=== PATIENT | female | born 1950 | race Caucasian/White ===

== ENCOUNTER → 2018-09-14 08:43 | Outpatient (CLI) | payer MEDICARE, OTHER, SELFPAY ==
[2018-09-14 07:40] VITALS: BMI 39.7
[2018-09-14 09:35] LABS: Absolute Lymphocyte Count 1.79 X10^3/ul (0.83-4.51); Absolute Neutrophil Count 2.9 X10^3/uL (2.0-7.7); Basophil# 0.03 X10^3/uL; Basophil% 0.5 % (0-1); Eosinophil# 0.29 X10^3/uL; Eosinophils% 5.2 % (0-5); Hematocrit 42.3 % (37-47); Hemoglobin 14.2 g/dl (12.0-15.0); International Normalized Ratio 0.9; Lymphocyte # 1.79 X10^3/ul (4.0); Lymphocyte % 32.3 % (19-41); Mean Corp Hgb Conc 33.6 g/gl (32-36); Mean Corpuscular Hgb 31.8 pg (27.0-32.0); Mean Corpuscular Volume 94.6 fL (81-99); Mean Platelet Vol. 9.4 fl (6.2-12.0); Monocyte# 0.52 X10^3/uL; Monocyte% 9.4 % (0-10); Neutrophil % 52.4 % (47-70); Platelet Count 204 K/mm3 (150-450); Prothrombin Time (Protime)PT. 12.6 SECONDS (11.7-14.9); RBC Distribution Width CV 12.6 % (11.6-14.6); RBC Distribution Width SD 42.6 fl (35.1-43.9); Red Blood Count 4.47 M/mm3 (4.2-5.4); White Blood Count 5.5 K/mm3 (4.4-11.0)
[2018-09-14 09:36] LABS: Partial Thromboplast Time 30.6 Seconds (24.1-36.2)
[2018-09-14 09:39] LABS: POSITIVE COUNT NO; POSITIVE DIFFERENTIAL NO; POSITIVE MORPHOLOGY NO
== END ==
PROVIDERS: Family Provider Physician Assistant; PCP Physician Assistant; Referring Provider Internal Medicine Critical Care Medicine; Visit Provider Internal Medicine Critical Care Medicine
DX: Z01.812 Encounter for preprocedural laboratory examination (principal); R91.8 Other nonspecific abnormal finding of lung field; R05 Cough
CPT/HCPCS: 36415; 85025; 85610; 85730

== ENCOUNTER → 2018-09-20 06:45 | Outpatient (CLI) | payer MEDICARE, OTHER, SELFPAY ==
[2018-09-14 07:40] VITALS: BMI 39.7
--- NOTE | 2018-09-20 12:00 | PFTCOMP ---
COMPLETE PULMONARY FUNCTION TEST INTERPRETATION Brief HPI: Patient is a 67 year old female, currently under the care of myself, who presents to [facility] for complete pulmonary function tests secondary to diagnosis of abnormal chest imaging. Respiratory therapist reports good effort and reproducible results. Interpretation: Forced expiration spirometry shows no large airways obstructive ventilatory defect with an FEV1 of 105% predicted. There is no significant bronchodilator response by strict ATS criteria. Spirograms are of good quality and plateau normally. The respiratory flow volume loop shows a normal pattern. Lung volumes by body plethysmography show an elevated total lung capacity at 5.17 L, 122% predicted. All other lung volumes are increased symmetrically. Diffusion capacity by carbon monoxide is at the lower limit of normal at 68% predicted. The airway resistance is normal. No previous pulmonary function tests were available for review. Impression: These pulmonary function tests are grossly within normal limits. DLCO is at the lower limit of normal and may indicate an early pulmonary vascular disorder.
== END ==
PROVIDERS: Family Provider Physician Assistant; PCP Physician Assistant; Referring Provider Internal Medicine Critical Care Medicine; Visit Provider Internal Medicine Critical Care Medicine
DX: R91.8 Other nonspecific abnormal finding of lung field (principal); R05 Cough
CPT/HCPCS: 94060; 94726; 94729

== ENCOUNTER 2018-10-08 10:37 | Day surgery (SDC) | payer MEDICARE, OTHER, SELFPAY ==
[2018-09-14 07:40] VITALS: BMI 39.7
[2018-10-08] VITALS (9 sets, daily range): BP systolic 83–169; BP diastolic 51–125; PULSE 58–80; RESP 14–16; TEMP 36.2–36.9; O2SAT 92–96; BMI 39.6
--- NOTE | 2018-10-08 | ASPS_PTH ---
PATIENT: ARUNA HILL LOC: EN U#:[id number] AGE/SX: 67/F ROOM: RE10/08/[address]: Dr. Steven Santos DO : 1950 BED: DIS: 10/08/2018 SPEC #: [id number] RECD: 10/08/18 14:25 STATUS: BELEN BIJAN #: [id number] JORDON: 10/08/18 00:[address]: Steven Santos DEPT: CYTOLOGY RECD BY: Adam Lopez ENTERED: 10/08/18 14:26 SP TYPE: ASPIRATION OTHR DR: MAGDALENO Ro Tissues: A - Lung, NOS B - Lung, NOS C - Lung, NOS D - Lung, NOS E - Lung, NOS F - Lung, NOS G - Bronchus of right middle lobe Procedures: Pap Stain (control) Special Stain Group II Surgery Specimen Level IV Diff Quik Stain (control) Cell Block Cytology Other HEADER OPERATION: Bronchoscopy PRE-OP DIAGNOSIS: Abnormal chest CT TISSUE SUBMITTED: A-E - EBUS FNA, site 7, F - EBUS aspiration, site 7 (cell block) DIAGNOSIS CYTOLOGY A. EBUS aspiration #1, site 7: Degenerating epithelioid cells and proteinaceous material. B. EBUS aspiration #2, site 7: Degenerating epithelioid cells and proteinaceous material. C. EBUS aspiration #3, site 7: Degenerating epithelioid cells and proteinaceous material. D. EBUS aspiration #4, site 7: Degenerating epithelioid cells and proteinaceous material. E. EBUS aspiration #5, site 7: Adequate for evaluation of lymph node. Negative for malignant cells. F. EBUS aspiration, site 7 (cell block): Proteinaceous debris and degenerating epithelioid cells. No evidence of malignancy. G. Bronchoalveolar lavage (cytospins & cell block): Negative for malignant cells. AM:rosalind 10/11/18 COMMENT The specimen is evaluated at the time of procedure by Dr. Hudson. A. EBUS aspiration #1, site 7: Degenerating epithelioid cells and amorphous proteinaceous material. B. EBUS aspiration #2, site 7: Degenerating epithelioid cells and amorphous proteinaceous material. C. EBUS aspiration #3, site 7: Degenerating epithelioid cells and amorphous proteinaceous material. D. EBUS aspiration #4, site 7: Degenerating epithelioid cells and amorphous proteinaceous material. E. EBUS aspiration #5, site 7: Adequate for evaluation of lymph node. Negative for malignant cells. Sections of the cell block, site #7 show globular proteinaceous material and degenerative epithelioid cells. Immunohistochemistry (RF19-5) supports the diagnosis. No malignant cells are identified. Congenital benign cyst of the mediastinum cannot be excluded. Clinical correlation is suggested. Case has been reviewed in consultation with Dr. Alcazar who concurs with the above diagnosis. IDC:SJ CYTOLOGY STUDY Slides are reviewed. CYTOLOGY GROSS A - Received labeled with the patient's name and and designated EBUS FNA, aspiration #1, site?7. The specimen consists of two smears. The smears are submitted for immediate cytologic evaluation (wet read). B - Received labeled with the patient's name and and designated EBUS FNA, aspiration #2, site?7. The specimen consists of two smears. The smears are submitted for immediate cytologic evaluation (wet read). C - Received labeled with the patient's name and and designated EBUS FNA, aspiration #3, site?7. The specimen consists of two smears. The smears are submitted for immediate cytologic evaluation (wet read). D - Received labeled with the patient's name and and designated EBUS FNA, aspiration #4, site?7. The specimen consists of two smears. The smears are submitted for immediate cytologic evaluation (wet read). E - Received labeled with the patient's name and and designated EBUS FNA, aspiration #5, site?7. The specimen consists of two smears. The smears are submitted for immediate cytologic evaluation (wet read). F - Received labeled with the patient's name and and designated EBUS FNA, aspiration, site?7. The specimen consists of 1 ml of mucoid light pink material. The specimen is submitted for cell block preparation. G - Received labeled with the patient's name and and designated bronchoscopy. The specimen consists of 10 ml of pink cloudy fluid. The specimen is submitted for cell block preparation. / AM:rosalind 10/08/18 TC:5 CPT: 92375, 36196 x4, 20950
--- NOTE | 2018-10-08 | IMM_PTH ---
PATIENT: ARUNA HILL LOC: EN U#:[id number] AGE/SX: 67/F ROOM: RE10/08/[address]: Dr. Steven Santos DO : 1950 BED: DIS: 10/08/2018 SPEC #: [id number] RECD: 10/13/18 07:45 STATUS: BELEN REQ #: [id number] JORDON: 10/08/18 00:[address]: Steven Santos DEPT: IMMUNOHISTOCHEMISTRY RECD BY: Adriana Jean ENTERED: 10/13/18 07:47 SP TYPE: IMMUNO OTHR DR: MAGDALENO Ro Tissues: Lung, NOS Procedures: CD45 (add) MACRO (add) P53 (add) Vimentin (add) Pankeratin (initial) S-100 (add) PHYSICIAN & INSTITUTION [place] [id number] SPECIMEN INFORMATION: Tissue Source: F - EBUS aspiration (cell block) Clinical Info: Abnormal chest CT Specimen Number: [id number] F CPT code: 89133, 35717 x5 METHODOLOGY: Deparaffinized sections of prefer/formalin-fixed tissue or PAP/DQ stained slides are incubated with monoclonal/polyclonal antibodies/oligonucleotide probes. Localization is made via biotin free immunoperoxidase method. Appropriate controls are performed and reacted as expected. Results on target cell population are indicated in the following table: RESULTS: ANTIBODY / CLONE RESULT AE1-3 (AE1/AE3/PCK26) positive, rare CD45 (RP2/18) negative S-100 (4C4.9) negative Macro (HAM-56) negative Vimentin (V9) negative P53 (DO-7) negative These tests were developed and their performance characteristics determined by [facility]. They may not have been cleared or approved by the U.S. Food and Drug Administration. The FDA has determined that such clearance or approval is not necessary. INTERPRETATION: EBUS aspiration (cell block): Proteinaceous debris. Rare degenerating epithelioid cells. AM:rosalind 10/13/18 Comment: There is no evidence of malignancy. Case has been reviewed in consultation with Dr. Alcazar who concurs with the above diagnosis. IDC:PATRICIA
--- NOTE | 2018-10-08 13:51 | OP.ENDO_ITS ---
Patient Name: Nahed Zimmer Procedure Date: 10/08/2018 11:53 AM Date of : 1950 Age: 67 Procedure: Bronchoscopy Indications: Abnormal Chest CT Providers: Steven Santos MD, Jb Ball MD Referring MD: Raegan Pate Medicines: General Anesthesia Complications: No immediate complications Procedure: Pre-Anesthesia Assessment: - [place] Protocol: - Pre-procedure Verification: Prior to the procedure, the patient's identity was verified by full name and date of . The patient's identity was verified on all pertinent medical records, including History and Physical. Also prior to the procedure, a History and Physical was performed, and patient medications, allergies and sensitivities were reviewed. The patient's tolerance of previous anesthesia was reviewed. The risks and benefits of the procedure and the sedation options and risks were discussed with the patient. All questions were answered and informed consent was obtained. - Time-Out: Prior to the start of the procedure, the patient's identification, proposed procedure, accurate signed consent, correctly labeled images and records, and need for prophylactic antibiotics were verified by the physician and the nurse in the procedure room. - A History and Physical has been performed. The patient's medications, allergies and sensitivities have been reviewed. After I obtained informed consent, the scope was passed under direct vision. Throughout the procedure, the patient's blood pressure, pulse, and oxygen saturations were monitored continuously.The procedure was accomplished without difficulty. The patient tolerated the procedure well. The ultrasound bronchoscope was introduced through the mouth, via laryngeal mask airway and advanced to the tracheobronchial tree. Findings: The laryngeal mask airway is in good position. The vocal cords appear normal. The subglottic space is normal. The trachea is of normal caliber. The ibrahima is sharp. The tracheobronchial tree was examined to at least the first subsegmental level. Bronchial mucosa and anatomy are normal; there are no endobronchial lesions, and no secretions. The scope was withdrawn and replaced with the EBUS bronchoscope to accomplish the ultrasound examination. Lymph Nodes: An endobronchial ultrasound endoscope was utilized to systematically examine the subcarinal mediastinum (level 7) in order to assist with guiding the biopsy needle. Lymph node sizing was performed via endobronchial ultrasound. Sampling by transbronchial needle aspiration was also performed using an Olympus EBUS-TBNA 19 gauge needle in the subcarinal mediastinum (level 7) and sent for cell count and differential, routine cytology, bacterial cultures and fungal analysis. - The 7 (subcarinal) node was evaluated. Five samples with the needle were obtained. The subcarinal lesion mentioned above appeared to have a solid/semisolid compenent, along with surrounding anechoic material, which may have been outbound call center representative of fluid. The material aspirated from the lesion appeared to be proteinaceous in appearance. No lymphocytes were identified. Transbroncial needle aspiration was completed as noted above. Bronchoalveolar lavage was then performed in the right middle lobe of the lung and sent for cell count and differential and aerobic culture. 60 mL of fluid were instilled. 20 mL were returned. The return was serosanguinous. Impression: - Undifferentaited lesion abutting the right mainstem, which may represent a cyst vs abscess - The airway examination was normal. - Endobronchial ultrasound was performed. - Bronchoalveolar lavage was performed. Recommendation: - Await BAL and biopsy results. - Follow up in clinic as previously scheduled. Procedure Code(s): --- Professional --- 15982, Bronchoscopy, rigid or flexible, including fluoroscopic guidance, when performed; with endobronchial ultrasound (EBUS) guided transtracheal and/or transbronchial sampling (eg, aspiration[s]/biopsy[ies]), one or two mediastinal and/or hilar lymph node stations or structures 82906, Bronchoscopy, rigid or flexible, including fluoroscopic guidance, when performed; with bronchial alveolar lavage Diagnosis Code(s): --- Professional --- R59.0, Localized enlarged lymph nodes R09.89, Other specified symptoms and signs involving the circulatory and respiratory systems CPT copyright 2017 [employer]. All rights reserved. The codes documented in this report are preliminary and upon color paste mixer review may be revised to meet current compliance requirements. DO Steven Eden MD 10/08/2018 1:50:47 PM This report has been signed electronically. Jb Ball MD Number of Addenda: 0 Note Initiated On: 10/08/2018 11:53 AM
[2018-10-08 18:32] LABS: Appearance/Body Fluid CLOUDY; Color/Body Fluid PINK; Source- Body Fluid BRONCHIAL LAVAGE
[2018-10-08 18:34] LABS: Lymphocytes 26 %; Monocytes 9 %; Neutrophil (Segs) 26 %; Red Cell Count/Body Fluid 22578 /mm3
[2018-10-08 18:35] LABS: Body Fluid QC Type(s) BF1Q; Other Cell Type/BF 39 %
[2018-10-11 10:51] LABS: Pathologist Comment/Body Fluid Reviewed
== END 2018-10-08 15:47 | disposition home or self-care (01) ==
LOC: EN 10:39 → AC 10:40
PROVIDERS: Family Provider Physician Assistant; PCP Physician Assistant; Referring Provider Internal Medicine Critical Care Medicine; Visit Provider Internal Medicine Critical Care Medicine
PROC: BB4BZZZ Ultrasonography of Pleura (ICD-10-PCS; principal; 2018-10-08 12:00)
DX: R59.0 Localized enlarged lymph nodes (principal); R09.89 Other specified symptoms and signs involving the circulatory and respiratory systems; R91.8 Other nonspecific abnormal finding of lung field; R05 Cough; K21.9 Gastro-esophageal reflux disease without esophagitis; E78.00 Pure hypercholesterolemia, unspecified; E03.9 Hypothyroidism, unspecified; E78.5 Hyperlipidemia, unspecified; H81.10 Benign paroxysmal vertigo, unspecified ear; E66.3 Overweight; Z68.39 Body mass index [BMI] 39.0-39.9, adult; Z79.82 Long term (current) use of aspirin; Z79.899 Other long term (current) drug therapy
CPT/HCPCS: 31624; 31652; 87070; 87101; 87205; 88161; 88305; 88313; 88341; 88342; 89050; J7120; A4216; J2405

== ENCOUNTER → 2018-11-06 10:27 | Outpatient (CLI) | payer MEDICARE, OTHER, SELFPAY ==
[2018-10-14 10:56] VITALS: BMI 40.0
== END ==
PROVIDERS: Family Provider Physician Assistant; PCP Physician Assistant; Referring Provider Nurse Practitioner Acute Care; Visit Provider Nurse Practitioner Acute Care
DX: J15.9 Unspecified bacterial pneumonia (principal)
CPT/HCPCS: 87070; 87205

== ENCOUNTER → 2019-05-12 07:53 | Outpatient (CLI) | payer MEDICARE, OTHER, SELFPAY ==
[2019-01-18 13:54] VITALS: BMI 39.9
[2019-05-10 13:28] VITALS: BMI 39.9
--- NOTE | 2019-05-13 08:51 | PFT ---
INTRODUCTION: The patient is a 68-year-old female that presents for pulmonary function studies secondary to a diagnosis of cough and wheeze. Respiratory therapy reports good patient effort. Bronchodilators were used during testing. INTERPRETATION: Forced expiration spirometry demonstrates no evidence of a large airways obstructive ventilatory defect. There was no significant response to aerosolized bronchodilators. Spirograms are of good quality and plateau normally. Body plethysmography was performed and reveals lung volumes to be within normal limits. Diffusing capacity by single breath CO is reduced at 59% of predicted. When compared to previous pulmonary function studies dated September 2018, there has been a 10% reduction in TLC along with a 14% reduction in DLCO. IMPRESSION: Isolated moderate reduction in diffusing capacity with worsening in TLC and DLCO since 2018, as noted above.
== END ==
PROVIDERS: Family Provider Physician Assistant; PCP Physician Assistant; Referring Provider Internal Medicine Critical Care Medicine; Visit Provider Internal Medicine Critical Care Medicine
DX: R91.8 Other nonspecific abnormal finding of lung field (principal); R05 Cough
CPT/HCPCS: 94060; 94726; 94729

== ENCOUNTER → 2019-08-08 | Outpatient (CLI) | payer MEDICARE, OTHER, SELFPAY ==
[2019-05-24 08:50] VITALS: BMI 40.3
--- NOTE | 2019-08-08 06:28 | ECHOCS_ITS ---
Reason For Study: MATIAS Procedure This was a 2D Doppler, Color Flow transthoracic echocardiogram. The study was technically difficult. Contrast injection was performed. Exam performed in department. Left Ventricle Normal LV size. Left ventricular systolic function is normal. The estimated ejection fraction is 65 %. Stage 1 diastolic dysfunction. No regional wall motion abnormalities noted. Right Ventricle Normal RV size. Normal systolic function. Atria Normal left atrium. Normal right atrium. Mitral Valve Mitral valve not well visualized. Mild (1+) eccentric mitral valve insufficiency. Tricuspid Valve Normal tricuspid valve. Aortic Valve The aortic valve is not well visualized. Pulmonic Valve Normal pulmonic valve. Great Vessels Normal aortic root. The pulmonary artery is normal size. Normal inferior vena cava. Pericardium/Pleural No pericardial effusion. Medication Diluted definity 2.0ml given slow IV push to enhance endocardial definition. MMode/2D Measurements & Calculations LVIDd: 4.8 cm IVSd: 0.71 cm Ao root diam: 3.3 cm LVIDs: 3.3 cm LVPWd: 0.79 cm RVDd: 3.1 cm FS: 31.4 % LAV(MOD-bp): 34.5 ml EDV(MOD-sp4): 93.4 ml EDV(MOD-sp2): 85.0 ml LAV(MOD-bp) Indexed: 18.0 ml/m2 ESV(MOD-sp4): 38.7 ml EF(MOD-sp2): 72.2 % LAV(MOD-sp2): 38.9 ml EF(MOD-sp4): 58.5 % LAV(MOD-sp4): 29.4 ml SV(MOD-sp4): 54.6 ml SV(MOD-sp2): 61.4 ml LA A4 area: 13.0 cm2 LA dimension(2D): 3.8 cm RA A4 area: 14.9 cm2 Time Measurements MV dec time: 0.17 sec Doppler Measurements & Calculations MV E max conner: 66.7 cm/sec Lat Peak E' Conner: 9.4 cm/sec Med Peak E' Conner: 5.4 cm/sec MV A max conner: 75.4 cm/sec E/E' lat: 7.1 E/E' med: 12.5 MV E/A: 0.88 Ao V2 max: 148.6 cm/sec LV V1 max: 115.8 cm/sec TR max conner: 218.9 cm/sec Ao max P.8 mmHg LV V1 max P.4 mmHg TR max P.3 mmHg Interpretation Summary Normal LV size. Left ventricular systolic function is normal. The estimated ejection fraction is 65 %. Stage 1 diastolic dysfunction. Contrast injection was performed. Ordering Physician: Raegan Pate Referring Physician: Raegan Pate Performed By: Libby Santiago RDCS, RVT
--- NOTE | 2019-08-08 13:54 | STRESSREP_ITS ---
Stress Test Report Exercise myocardial perfusion stress test. 68-year-old lady with a history of dyspnea on exertion. Medications: Simvastatin, thyroid medications. Stress protocol: Resting EKG demonstrates sinus bradycardia with a rate of 56 bpm normal intervals are noted resting blood pressures 142/72 mmHg. The patient exercised according to regular Jb protocol for total duration of 4 minutes and 18 seconds. Patient completed 1 minute and 18 seconds into stage III of the Jb protocol. The maximum heart rate attained was 171 bpm which was 111% of maximum predicted heart rate and maximum workload was 6.1 metabolic equivalents. Patient maintained sinus rhythm with occasional paroxysms of atrial fibrillation noted. At rest there were nonspecific ST-T wave changes noted and at peak exercise nonspecific ST-T wave changes were also noted. ST depression did not meet criteria for ischemia. The resting blood pressure 142/72 peak blood pre ssure 146/92 mmHg. The test was terminated due to shortness of breath. Myocardial perfusion protocol. 10.0 mCi of technetium 99m sestamibi was injected at rest. Patient exercised according to regular Jb protocol for total duration of 4 minutes and 18 seconds at peak exercise 30.0 mCi of technetium 99m sestamibi was injected stress images were obtained stress and rest images were reconstructed in comparing the short axis vertical and horizontal long axis. Perfusion SPECT analysis: Review of the stress images demonstrate normal uptake of tracer noted in all areas of the myocardium. The resting images similar demonstrate normal uptake of tracer noted in all areas of the myocardium. No areas of reversibility are noted suggest ischemia no previous infarct is noted. Gated SPECT analysis: The gated ejection fraction is noted to be 83%. Conclusion: Normal exercise myocardial perfusion stress test at a low to moderate workload. Paroxysmal atrial fibrillation noted. Preserved ejection fraction.
== END | disposition home or self-care (01) ==
PROVIDERS: Family Provider Physician Assistant; PCP Physician Assistant; Referring Provider Physician Assistant; Visit Provider Physician Assistant
DX: R06.09 Other forms of dyspnea (principal)
CPT/HCPCS: 78452; 93017; 93306; A9500; Q9957; A4216; C8929

== ENCOUNTER 2019-10-17 07:57 | Day surgery (SDC) | payer MEDICARE, OTHER, SELFPAY ==
[2019-09-14 15:48] VITALS: BMI 40.6
[2019-10-10 08:13] LABS: Absolute Lymphocyte Count 1.89 X10^3/uL (0.83-4.51); Basophil# 0.04 X10^3/uL; Basophil% 0.7 % (0-1); Eosinophil# 0.29 X10^3/uL; Hematocrit 43.1 % (37-47); Hemoglobin 13.6 g/dL (12.0-15.0); Lymphocyte # 1.89 X10^3/ul (4.0); Lymphocyte % 32.9 % (19-41); Mean Corp Hgb Conc 31.6 g/dL (32-36); Mean Corpuscular Hgb 29.6 pg (27.0-32.0); Mean Corpuscular Volume 93.9 fL (81-99); Mean Platelet Vol. 8.8 fl (6.2-12.0); Monocyte# 0.48 X10^3/uL; Monocyte% 8.3 % (0-10); NRBC Flagged by Analyzer 0 % (0-5); Neutrophil # 3.04 X10^3/uL (2.7-7.7); Neutrophil % 52.9 % (47-70); Platelet Count 182 K/mm3 (150-450); RBC Distribution Width CV 12.9 % (11.6-14.6); RBC Distribution Width SD 44.3 fl (35.1-43.9); Red Blood Count 4.59 M/mm3 (4.2-5.4); White Blood Count 5.8 K/mm3 (4.4-11.0)
[2019-10-10 08:37] LABS: Anion Gap 3 (5-15); BUN 17 mg/dL (7-18); BUN/Creat Ratio 16.7 RATIO (10-20); Calcium,Total 8.8 mg/dL (8.5-10.1); Chloride 108 mmol/L (98-107); Creatinine, Serum 1.02 mg/dL (0.55-1.02); EST Glomerular Filtration Rate 57 mL/min (>60); Est Glom Filt Rate - Afr Amer 69 mL/min (>60); Glucose 90 mg/dL (74-106); Potassium 3.9 mmol/L (3.5-5.1); Sodium Level 140 mmol/L (136-145)
--- NOTE | 2019-10-17 08:50 | HP.PCM_ITS ---
History of Present Illness Details: Pleasant 68-year-old lady with no previous history of hypertension who is been having some intermittent chest discomfort which was not necessarily related to exertion. She also has a history of obstructive sleep apnea and was dyspneic. As part of her work-up she underwent an echocardiogram with de monstrated ejection fraction of 65% with stage I diastolic dysfunction she also underwent stress testing where she exercised to 6.1 metabolic equivalent and was noted to have occasional paroxysms of atrial fibrillation. Her blood pressure at rest was noted to be normal the nuclear images did not demonstrate any evidence of ischemia. She did undergo a 24-hour Holter monitor which demonstrated an average heart rate of 66 bpm, minimum of 48 bpm, and maximum of 109 bpm. Occasional ectopic beats were noted no atrial fibrillation was noted. She has previously not been on any medications for her blood pressure or her lungs. She is also seen the animal pathologist because his CT scan had demonstrated a pulmonary nodule. Her lipid profile has previously been noted to be excellent with a total cholesterol 208 HDL of 64 and LDL of 124. Her TSH has been normal. She also had a natruretic peptide level which is noted to be normal her physical exam here today demonstrates clear lung chery regular rate and rhythm and no pedal edema. Intake Vital Signs 09/14/19 Height 5 ft 1 in 09/14/19 Weight: 215 lb 09/14/19 Body Mass Index (BMI) 40.6 09/14/19 Blood Pressure 137/76 H 09/14/19 Respiratory Rate 16 09/14/19 Pulse Rate 76 09/14/19 Pulse Ox 98 Intake Visit Reasons: 1 M FU Allergies No Known Allergies Allergy (Verified 09/14/19 15:49) [facility] Medical History Paroxysmal atrial fibrillation (Chronic) Hyperlipidemia (Chronic) HERNANDO (obstructive sleep apnea) (Chronic) Hypersomnia (Chronic) Lung mass (Chronic) Dermatitis (Acute) BPPV (benign paroxysmal positional vertigo) (Chronic) DJD (degenerative joint disease) (Chronic) GERD with esophagitis (Chronic) Gastroesophageal reflux disease (Chronic) Hypothyroidism (Chronic) Lumbar spinal stenosis (Chronic) Morbid obesity due to excess calories (Chronic) Persistent cough (Chronic) Surgical History H/O section (Resolved) History of appendectomy (Resolved) History of total left knee replacement (Resolved) Status post right partial knee replacement (Resolved) history of right total knee revision (Resolved) left thumb surgery (Resolved) Family History Father Parkinsons disease Skin cancer Mother Hypertension Arthritis Grandmother CVA (cerebral vascular accident) Aunt No problems noted. Social History (Updated 09/14/19 @ 16:31 by Hank Sher MD) Smoking Status: Never smoker second hand exposure: No alcohol intake: current alcohol intake frequency: holidays/special occasions only substance use type: does not use ROS Const Const: Negative for fatigue, weakness, headache(s), frequent falls, difficulty sleeping or excessive sweating Eyes Eyes: Negative for loss of peripheral vision, transient loss of vision, blurry vision, double vision or tunnel vision ENT ENT: Negative for headache(s), dizziness, Nosebleed/epistaxis or balance problems Cardio Chest Pain: No Palpitations: No Edema: None Muscle aches with walking: None Resp Respiratory: Negative for SOB with activity, SOB at rest, SOB orthopnea\SOB lying down, Cough or paroxysmal nocturnal dyspnea GI GI: Negative nausea, vomiting, heartburn or black,tarry stools : Negative for hematuria Musc Musc: Negative for muscle aches/ myalgia, muscle weakness, joint pain or balance problems Skin Skin: Negative non-healing lesions, rash or unusual bruising Neuro Neuro: Negative for dizziness, lightheadedness, near syncope, syncope, orthostatic symptoms, frequent falls, headache(s), weakness, blurry vision, double vision or lack of coordination Juan Hematologic/Lymphatic: Negative for easy bleeding or easy bruising Endo Endo: Negative for fatigue, excessive sweating or increased thirst/drinking Psych Psych: Negative for anxiety or depression Allergy Allergy/Immunology: Negative for hives, Negative for rash Cardiology Exam Const Appearance: cooperative, healthy appearing, no acute distress, well developed and well groomed Nutritional Appearance: average body habitus and well nourished Orientation: alert, awake and oriented x3 Head Head: normal to inspection, normocephalic and atraumatic Ears: hearing grossly normal bilaterally and external ears normal Nose: external nose normal, nares normal, nasal mucous membranes and turbinates normal, septum normal, no nasal discharge Face and Sinus: face symmetric Mouth: oral mucosae normal, tongue normal, oropharynx normal and moist mucous membranes Teeth and gingiva: dentition normal Throat: posterior oropharynx normal, tonsils normal and uvula midline Eyes General: appearance normal, both eyes and all related structures Eyelids: eyelids normal Conjunctivae: conjunctivae normal Pupils: PERRL, normal by confrontation and accommodation normal EOM: EOM intact bilaterally Neck Neck: normal visual inspection, trachea midline and no JVD JVD: +5 Carotids: normal carotid upstroke and bounding pulses Chest Chest inspection: normal inspection of the chest, symmetric chest movement and normal respiratory effort Auscultation: Bilateral: Clear to Auscultation Cardio Palpation: normal PMI Rate: regular rate Rhythm: regular rhythm Heart sounds: S1 normal, S2 normal and normal, physiologic split S2; negative rub, gallop or murmur GI GI: normal to inspection, soft, no hepatosplenomegaly and bowel sounds present Neuro General: alert, awake, oriented x3, gait normal, moves all extremities and no focal sensory deficit Skin Skin: no rashes or lesions noted Extremities Pulses: Normal: Right Femoral Pulse, Left Femoral Pulse, Right Dorsalis Pedis Pulse, Left Dorsalis Pedis Pulse, Right Posterior Tibial Pulse, Left Posterior Tibial Pulse, Right Radial Pulse, Left Radial Pulse Lower Extremity Edema: None: Bilateral Musculoskel Musculoskeletal: No joint tenderness Psych Psychological: normal affect Assessment & Plan 1. Exertional dyspnea R06.09 Plan She does have exertional dyspnea. My recommendation at this time is especially in light of the fact that her natruretic peptide level is normal, her stress test was normal with only occasional paroxysmal atrial fibrillation which was exercise-induced, her normal blood pressure, that we proceed with a cardiac catheterization to exclude obstructive coronary disease. I think the likelihood of the above is low. However I do not find any other reason for the above. The risk benefits alternatives have been explained to her she understands and agrees to proceed. 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) Past Medical History Allergies/Adverse Reactions: Allergies No Known Allergies Allergy (Verified 09/14/19 15:49) Home Medications: Ambulatory Orders Medication Instructions Recorded Simvastatin [Zocor] 20 mg PO QHS 06/13/14 pantoprazole 40 mg granules 40 mg PO BID 09/13/18 delayed-release for susp in packet ascorbic acid (vitamin C) 500 mg 500 mg PO QDAY cap 09/14/18 capsule aspirin 81 mg tablet,delayed 81 mg PO DAILY 09/14/18 release calcium carbonate 600 mg (1,500 1 tab PO DAILY 09/14/18 mg)-vitamin D3 200 unit tablet cyclosporine 0.05 % eye drops 1 drp OPHTHALMIC Q12H 09/14/18 multivitamin 1 tab PO DAILY 09/14/18 4 Life Transfer Factor 1 dose PO DAILY PRN PRN 08/17/19 Bio EFA 2 tab PO DAILY 08/17/19 levothyroxine 50 mcg capsule 50 mcg PO DAILY 08/17/19 Past Medical History (Chronic Problems): Chronic Problems (Last Reviewed 09/14/19 @ 16:28 by Hank Sher MD) Paroxysmal atrial fibrillation (Chronic) Hyperlipidemia (Chronic) HERNANDO (obstructive sleep apnea) (Chronic) AHI 9.3 Hypersomnia (Chronic) Lung mass (Chronic) Smoking Status: Never smoker Tobacco Use: Non-smoker Objective: Weight: 214 lb 6.4 oz Body Mass Index (BMI) 40.6 VTE Information - Inpt Only VTE Present on Admission: No VTE Mechan Device Prophylaxis: None VTE Pharm Prophylaxis ordered?: No Reason prophylaxis not ordered:: Treatment Not Indicated Rhythm: EKG: ECHO: Stress Test: Cardiac Cath: PCI: CT Surgery: Holter monitor: EPS: PPM: CXR: Chest CT Scan:
--- NOTE | 2019-10-17 09:31 | CL.D_ITS ---
Patient Name: ARUNA HILL Study Date: 10/17/2019 Performing: Hank Sher MD Ht: 61 inches 155 cm : 1950 Wt: 215.3 lbs 97.52 kg Age: 68 Gender: female BSA: 1.95 PROCEDURE(S) PERFORMED [id number]/LV CLINICAL PROFILE AND INDICATIONS Indications: Suspected CAD Heart Failure: None Stress/Imaging Date: 09/30/19Stress Test with SPECT MPI: Negative CAD Presentations: Symptom unlikely to be ischemic. CONCLUSIONS Normal coronary arteries Normal LV size, wall motion,and systolic function RECOMMENDATIONS Medical therapy DESCRIPTION OF PROCEDURE The patient arrived to the procedure lab. The risks and benefits of the procedure as well as a full d escription of our services here and current unavailability of surgical backup were fully explained to the patient and/or their significant other prior to the catheterization. The Timeout was completed, verifying the correct patient and procedure. The patient's procedural site was prepped and draped in the usual fashion. Local anesthetic was given subcutaneously to right radial region with Lidocaine 2% . Using a modified Seldinger technique, arterial access was obtained via the right radial artery, a 6 Fr sheath was inserted. Left Coronary Artery selective angiography was performed in multiple views u sing a 5 Fr. 4.0 Saffell catheter. Right Coronary Artery selective angiography was then performed in mu ltiple views using a 5 Fr. 4.0 Saffell catheter. Left Ventriculography was performed in CHEN projection using a 5 Fr. Pigtail catheter. LV to AO pullback pressures were then recorded.The arterial sheath was pulled and a TR Band was applied for hemostasis CORONARY ANGIOGRAPHY DOMINANCE: Right Dominant LEFT HEART ASSESSMENT Left Ventricular Ejection Fraction: by LV Gram 60 % Normal Left Ventricular systolic function Normal Left Ventricular systolic function LEFT MAIN: Angiographically normal LEFT ANTERIOR DESCENDING ARTERY: Angiographically normal CIRCUMFLEX ARTERY: Angiographically normal RIGHT CORONARY ARTERY: Angiographically normal COMPLICATIONS No Complications PROCEDURE MEDICATIONS Fentanyl 50 mcg IV Versed 1 mg IV Oxygen: 2 L/min via nasal cannula Heparin diluted in 23cc Heparinized saline. Patient given 6cc IA of this solution. 10/17/2019 09:04:29 Verapamil 2.5mg, Ntg 100mcgs, 2000 units of Heparin diluted in 23cc Heparinized saline. Patient give n 6cc IA of this solution. 10/17/2019 09:04:29 SUMMARY OF HEMODYNAMIC DATA Time AIR REST ECG 08:23:08 AO 148/80 (107) SA 09:06:13 LV 132/3, 13 09:11:13 LV 136/4, 13 09:11:19 LV 121/21, 24 09:11:54 LVp 127/24, 29 09:12:11 AOp 134/86 (110) 09:12:16 Signed By Hank Sher MD On 10/17/2019 9:30:35 AM Hank Sher MD
== END 2019-10-17 11:30 | disposition home or self-care (01) ==
LOC: CLSP 07:58
PROVIDERS: Family Provider Physician Assistant; PCP Physician Assistant; Referring Provider Internal Medicine Cardiovascular Disease; Visit Provider Internal Medicine Cardiovascular Disease
DX: R07.89 Other chest pain (principal); R06.09 Other forms of dyspnea; G47.33 Obstructive sleep apnea (adult) (pediatric); I48.20 Chronic atrial fibrillation, unspecified; I48.0 Paroxysmal atrial fibrillation; E78.5 Hyperlipidemia, unspecified; E03.9 Hypothyroidism, unspecified; E66.01 Morbid (severe) obesity due to excess calories; I10 Essential (primary) hypertension; R91.8 Other nonspecific abnormal finding of lung field; K21.9 Gastro-esophageal reflux disease without esophagitis; Z79.899 Other long term (current) drug therapy; Z79.82 Long term (current) use of aspirin; Z68.41 Body mass index [BMI] 40.0-44.9, adult
CPT/HCPCS: 36415; 80048; 85025; 93458; 99152; 99153; J7040; C1769; C1894; Q9967

== ENCOUNTER → 2019-11-24 13:00 | Outpatient (CLI) | payer MEDICARE, OTHER, SELFPAY ==
[2019-11-15 10:07] VITALS: BMI 40.6
== END ==
PROVIDERS: PCP Physician Assistant; Referring Provider Nurse Practitioner Acute Care; Visit Provider Nurse Practitioner Acute Care
DX: Z46.89 Encounter for fitting and adjustment of other specified devices (principal)
CPT/HCPCS: 98960; G0463

== ENCOUNTER → 2021-02-13 07:54 | Outpatient (CLI) | payer MEDICARE, OTHER, SELFPAY ==
[2020-03-28 13:21] VITALS: BMI 40.6
--- NOTE | 2021-02-14 09:43 | PFTCOMP_ITS ---
INTRODUCTION: The patient is a 70-year-old female that presents for pulmonary function studies secondary to a diagnosis of shortness of breath. Respiratory therapy reports good patient effort. Bronchodilators were used during testing. INTERPRETATION: Forced expiration spirometry demonstrates no evidence of a large airways obstructive ventilatory defect. There was no significant response to aerosolized bronchodilators. Spirograms are of good quality and plateau normally. The respiratory flow volume loop appears normal. Body plethysmography was performed and reveals lung volumes to be within normal limits. Diffusing capacity by single breath CO was also within normal limits. IMPRESSION: Grossly normal pulmonary function studies. There has been significant im provement in the patient's DLCO since May 2019.
== END ==
PROVIDERS: PCP Physician Assistant; Referring Provider Internal Medicine Critical Care Medicine; Visit Provider Internal Medicine Critical Care Medicine
DX: R06.02 Shortness of breath (principal)
CPT/HCPCS: 94060; 94726; 94729

== ENCOUNTER 2022-01-23 14:30 | Outpatient (CLI) | payer MEDICARE, OTHER, SELFPAY ==
[2022-01-23 15:24] LABS: BNP,B-Type NATRIURETIC PEPTIDE 3.4 pg/mL (0-100)
== END 2022-01-23 23:59 | disposition home or self-care (01) ==
LOC: LAB 14:31
PROVIDERS: PCP Physician Assistant; Referring Provider Internal Medicine Cardiovascular Disease; Visit Provider Internal Medicine Cardiovascular Disease
DX: R06.00 Dyspnea, unspecified (principal)
CPT/HCPCS: 36415; 83880